=== PATIENT | female | born 1950 | race Caucasian/White ===

== ENCOUNTER → 2020-08-22 14:21 | Outpatient (CLI) | payer MEDICARE, SELFPAY ==
--- NOTE | ~2020-08-22 | XR_ITS ---
XR foot LT 2V DATE: 08/22/2020 14:46 INDICATION: Injury TECHNIQUE: AP and lateral views COMPARISON: None FINDINGS: Diffuse osteopenia. There is a linear oblique fracture of the metaphysis and proximal shaft of the proximal phalanx of th e fifth digit without significant displacement or angulation. No other fracture or dislocation is evident. Prominent plantar calcaneal enthesopathy. There is some calcification of the distal Achilles tendon. Moderate osteoarthritis at the first metatarsophalangeal joint. IMPRESSION: Virtually nondisplaced fracture of proximal phalanx of fifth digit Reviewed, dictated and finalized at location [facility].
== END ==
PROVIDERS: PCP Family Medicine; Visit Provider Physician Assistant
DX: S92.512A Displaced fracture of proximal phalanx of left lesser toe(s), initial encounter for closed fracture (principal); M19.072 Primary osteoarthritis, left ankle and foot
CPT/HCPCS: 73620

== ENCOUNTER → 2021-05-28 13:41 | Outpatient (REF) | payer MEDICARE, SELFPAY | LOC: ANHLAB 13:41 | PROVIDERS: PCP Family Medicine; Visit Provider Nurse Practitioner | DX: L57.0 Actinic keratosis (principal) | CPT/HCPCS: 88305 ==

== ENCOUNTER → 2021-06-24 09:13 | Outpatient (REF) | payer MEDICARE, SELFPAY | LOC: ANHLAB 09:13 | PROVIDERS: PCP Family Medicine; Visit Provider Nurse Practitioner | DX: C44.321 Squamous cell carcinoma of skin of nose (principal) | CPT/HCPCS: 88305; 88331 ==

== ENCOUNTER 2022-10-02 12:30 | Outpatient (RCR) | payer MEDICARE, SELFPAY ==
--- NOTE | 2022-09-04 13:43 | PTOPEVAL1 ---
Assessment and note entered by Juana Cervantes, PT Evaluation Information Assessment Status Evaluation Diagnosis bilateral osteoarthritis of knee Onset 6 months ago Subjective Information Patient is 71 year old female referred to PT due to bilateral osteoarthritis of knees. Patient reports she is active in community and enjoys singing in her choir however knee pain limits standing tolerance. Patient denies use of assistive device and reports she is independent with all mobility. Reported Pain Level Pain Score 0: Self Report Additional Pain Score Comments Bilateral knee Pain has been going on for 6 months . Currently reports at rest knee pain bilaterally 0/10. With movement after prolonged stiffness pain will increase to 7/10. Patient states going down stairs, prolonged standing, and walking severely increases pain. Patient reports pain as achey and also sharp at times. Patient goal is to decrease pain and avoid need for knee replacement. Patient reports she will use heat and aspirin for pain relief at home which does provide some relief. Patient does not currently have knee braces. Assessment PT Clinical Summary Patient is 71 year old female admitted due to bilateral knee osteoarthritis and B LE pain. Patient at worst will rate knee pain as 7/10 bilaterally with L knee having increased severity. Pain currently limits patients ability to stand for prolonged period of time and comfortably perform stairs. Patient demonstrates decreased LE strength, impairments in range of motion with L knee flexion 90 degrees, L knee ext -8, R knee flexion 105, and R knee extension -5. Increased tenderness to touch and edema noted in LLE vs RLE. Patient will benefit from skilled PT services 2 times a week for 4 weeks to improve LE strength, dynamic balance, range of motion, and LE endurance in order to decrease pain and improve endurance with mobility in community. Plan of Care Interventions Electrical Stimulation,Gait Training,Hot Pack/Cold Pack,Manual Therapy,Patient/Caregiver Education, Therapeutic Activities,Therapeutic Exercise, Ultrasound PT Services Indicated Yes Treatment Frequency and 2 times a week for 4 weeks Duration These treatments will address the objective and functional deficits as defined above. The patient will be advanced safely and appropriately in order for the
--- NOTE | 2022-09-04 13:52 | PTOPEVAL1 ---
Assessment and note entered by Juana Cervantes, PT Evaluation Information Assessment Status Evaluation Diagnosis bilateral osteoarthritis of knee Onset 6 months ago Subjective Information Patient is 71 year old female referred to PT due to bilateral osteoarthritis of knees. Patient reports she is active in community and enjoys signing in her choir however knee pain limits standing tolerance. Patient denies use of assistive device and reports she is independent with all mobility. Reported Pain Level Pain Score 0: Self Report Additional Pain Score Comments Bilateral knee Pain has been going on for 6 months . Currently reports at rest knee pain bilaterally 0/10. With movement after prolonged stiffness pain will increase to 7/10. Patient states going down stairs, prolonged standing, and walking severely increases pain. Patient reports pain as achey and also sharp at times. Patient goal is to decrease pain and avoid need for knee replacement. Patient reports she will use heat and aspirin for pain relief at home which does provide some relief. Patient does not currently have knee braces. Assessment PT Clinical Summary Patient is 71 year old female admitted due to bilateral knee osteoarthritis and BLE pain. Patient at worst will rate knee pain as 7/10 bilaterally with L knee having increased severity. Pain currently limits patients ability to stand for prolonged period of time and comfortably perform stairs. Patient demonstrates decreased LE strength, impairments in range of motion with L knee flexion 90 degrees, L knee ext -8, R knee flexion 105, and R knee extension -5. Increased tenderness to touch and edema noted in LLE vs RLE. Patient will benefit from skilled PT services 2 times a week for 4 weeks to improve LE strength, dynamic balance, range of motion, and LE endurance in order to decrease pain and improve endurance with mobility in community. Plan of Care Interventions Electrical Stimulation,Gait Training,Hot Pack/Cold Pack,Manual Therapy,Patient/Caregiver Educati, Therapeutic Activities,Therapeutic Exercise, Ultrasound PT Services Indicated Yes Treatment Frequency and 2 times a week for 4 weeks Duration These treatments will address the objective and functional deficits as defined above. The patient will be advanced safely and appropriately in order for the pa
--- NOTE | 2022-09-10 14:49 | PCPTNOTE ---
Patient did not show up for scheduled appointment this date; Called patient who answered the phone and stated she simply forgot about today's appointment. Reviewed next scheduled appointment for September 12 @9:30am
--- NOTE | 2022-09-12 09:58 | PCPTNOTE ---
Patient did not show up for scheduled appointment this date. Called and left a voicemail about next appointment on 09/16.
--- NOTE | 2022-10-02 13:10 | PTOPDC ---
Assessment and note entered by Juana Cervantes, PT Evaluation Information Assessment Status Discharge Diagnosis bilateral osteoarthritis of knee Onset 6 months ago Subjective Information Patient is 71 year old female referred to PT due to bilateral osteoarthritis of knees. Patient reports she is active in community and enjoys signing in her choir however knee pain limits standing tolerance. Patient denies use of assistive device and reports she is independent with all mobility. Reported Pain Level Pain Score 3: Self Report Assessment PT Clinical Summary Patient reports pain as 3/10 in bilateral knees on this date. Patient has met all goals at this time demonstrating improved standing tolerance, relief in pain, improved bilateral lower extremity strength 5/5 with greater than ten seconds in bilateral single leg stance, and increased range of motion (L knee -2 to 115, R knee -2 to 110). Patient is independent with home exercise program and verbalizes understanding to continue with exercises 2 times daily at home. Educated patient regarding proper footwear to improve step quality with gait in community and to reduce fall risk. Will DC from PT at this time due to all goals being met and patient demonstrating max benefit of therapy services at this time. Plan of Care PT Services Indicated No
== END 2022-10-03 08:25 | disposition home or self-care (01) ==
LOC: ANHPT 12:30
PROVIDERS: PCP Family Medicine; Visit Provider Orthopaedic Surgery
DX: M17.0 Bilateral primary osteoarthritis of knee (principal)
CPT/HCPCS: 97014; 97110; 97162; 97530; 99199; G0283

== ENCOUNTER 2023-05-08 08:39 | Outpatient (CLI) | payer MEDICARE, SELFPAY ==
[2023-05-08 09:05] LABS: Basophils Absolute Auto 0.1 K/mm3 (0.0-0.1); Basophils Percent Auto 0.9 % (0.2-1.2); Eosinophils Absolute Auto 0.1 K/mm3 (0-0.3); Hematocrit 44.8 % (37.0-47.0); Hemoglobin 14.2 g/dL (12.0-15.0); Immature Granulocyte Absolute 0.02 K/mm3 (0.00-0.031); Immature Granulocyte Percent A 0.4 % (0-0.5); Lymphocytes Absolute Auto 1.74 K/mm3 (0.9-3.2); Mean Corpuscular HGB Conc 31.7 g/dl (32-36); Mean Corpuscular Hemoglobin 30.5 pg (26-34); Mean Corpuscular Volume 96.1 fl (80-100); Monocytes Absolute Auto 0.5 K/mm3 (0.1-0.6); Monocytes Percent Auto 8.2 % (2.6-8.5); Neutrophils Absolute Auto 3.2 K/mm3 (1.3-6.7); Neutrophils Percent Auto 57.5 % (45.5-73.1); Platelet Count Result 286 k/mm3 (150-375); Red Blood Count 4.66 M/mm3 (4.2-5.4); Red Cell Distribution Width 13.5 % (11.5-14.5); White Blood Count 5.6 K/mm3 (4.5-10.0)
[2023-05-08 09:15] LABS: Alanine Aminotransferase 25 U/L (6-35); Alkaline Phosphatase 95 U/L (38-126); Anion Gap 8 mmol/L (8-16); Aspartate Amino Transferase 26 U/L (14-36); Bilirubin,Total 0.8 mg/dL (0.2-1.3); Blood Urea Nitrogen 14 mg/dL (7-17); Calcium 9.8 mg/dL (8.4-10.2); Carbon Dioxide 25 mmol/L (22-30); Chloride 108 mmol/L (98-107); Cholesterol 154 mg/dL (0-200); Estimated Glomerular Filt Rate > 60; Glucose 120 mg/dL (65-110); HDL Direct 44 mg/dL; Potassium 4.3 mmol/L (3.4-5.0); Sodium 141 mmol/L (137-145); Triglycerides 99 mg/dL (<150)
[2023-05-08 09:26] LABS: LDL Cholesterol Direct 86 mg/dL
[2023-05-08 10:00] LABS: Thyroid Stimulating Hormone Reflex 0.563 uIU/mL (0.465-4.68)
== END 2023-05-08 08:40 | disposition home or self-care (01) ==
LOC: ANHLAB 08:42
PROVIDERS: PCP Family Medicine; Visit Provider Family Medicine
DX: E78.2 Mixed hyperlipidemia (principal); R53.83 Other fatigue; E03.9 Hypothyroidism, unspecified
CPT/HCPCS: 36415; 80053; 80061; 84443; 85025

== ENCOUNTER → 2023-05-27 12:13 | Outpatient (CLI) | payer MEDICARE, SELFPAY ==
--- NOTE | ~2023-05-27 | MR_ITS ---
MRI of the brain Clinical History: Dementia Technique: Axial and sagittal T1-weighted images were acquired. These were followed by axial T2-weigh judson, diffusion weighted, gradient, and FLAIR images. Following intravenous administration of 15 cc Mu ltiHance gadolinium, T1-weighted fat-sat imaging was performed in the axial and coronal planes. Findings: There is no acute infarct, intracranial hemorrhage, or mass lesion. There are minimal chron ic microvascular ischemic changes in the periventricular white matter bilaterally. Ventricles and subarachnoid spaces are dilated. Orbits are unremarkable. Paranasal sinuses and mastoi d air cells are clear. Major intracranial flow voids are intact. Sagittal midline structures are intact. No abnormal postcontrast enhancement identified. IMPRESSION: No acute abnormality. Minimal chronic microvascular ischemic changes. Reviewed, dictated and finalized at [facility]. [employer]OLOGY TE[employer]ER
== END ==
PROVIDERS: PCP Family Medicine; Visit Provider Family Medicine
DX: F03.90 Unspecified dementia, unspecified severity, without behavioral disturbance, psychotic disturbance, mood disturbance, and anxiety (principal)
CPT/HCPCS: 70553; A9577